=== PATIENT | female | born 1960 | race Caucasian/White ===

== ENCOUNTER 2017-11-13 09:21 | Day surgery (SDC) | payer BC ==
[~2017-11-13] VITALS: Ht 160 cm; Wt 62.8 kg
[~2017-11-13 09:21] MED LIST: ALBU90OI6 INH; ALL DAY ALLERGY10 M1; Advil200 M1 PO; BD ULTRA-FINE PEN ND; CLIN1TS; CYCL10; Cleocin T60 ML; FLUT44OIA; Humalog100 UNIT/1; IBUP600; INSULANPEN; INSULANPEN SC; LEVO-T75 MCG PO; LEVSOD50; NITR100 PO; One Touch Ultr1 EACH; QVAR REDIHALE10.6 G1; ZYRTEC10 M2 PO
== END 2017-11-13 11:55 | disposition home or self-care (01) ==
LOC: ORSCSDS 09:21
PROVIDERS: Internal Medicine Gastroenterology
PROC: 0DBK8ZX Excision of Ascending Colon, Via Natural or Artificial Opening Endoscopic, Diagnostic (ICD-10-PCS; principal; 2017-11-13 10:30)
DX: Z12.11 Encounter for screening for malignant neoplasm of colon (principal); D12.2 Benign neoplasm of ascending colon; Z86.010 Personal history of colon polyps; E11.9 Type 2 diabetes mellitus without complications; J45.909 Unspecified asthma, uncomplicated; E03.9 Hypothyroidism, unspecified; Z79.4 Long term (current) use of insulin; Z79.899 Other long term (current) drug therapy
CPT/HCPCS: 82947; 88305; J7120

== ENCOUNTER 2022-09-19 12:27 | Inpatient (IN) | payer BC ==
[~2022-09-19] VITALS: Ht 160 cm; Wt 67.5 kg
[2022-09-19 12:58] LABS: BASOPHILS ABSOLUTE AUTO 0.23 K/mm3 (0.00-0.23); BASOPHILS PERCENT AUTO 1 % (0-2); EOSINOPHILS ABSOLUTE AUTO 0.04 K/mm3 (0.00-0.68); EOSINOPHILS PERCENT AUTO 0 % (0-6); Hematocrit 47.4 % (33.0-51.0); Hemoglobin 14.3 g/dL (11.5-16.0); IMMATURE GRAN ABSOLUTE AUTO 1.06 K/mm3 (0.00-0.10); IMMATURE GRAN PERCENT AUTO 4 % (0-1); LYMPHOCYTES ABSOLUTE AUTO 3.78 K/mm3 (0.84-5.20); LYMPHOCYTES PERCENT AUTO 13 % (21-46); MONOCYTES PERCENT AUTO 8 % (4-13); Mean Corpuscular HGB 27.5 pg (26.0-34.0); Mean Corpuscular HGB Conc 30.2 g/dL (31.5-36.5); Mean Corpuscular Volume 91 fL (80-100); Mean Platelet Volume 11.5 fL (9.1-12.4); NEUTROPHILS ABSOLUTE AUTO 22.31 K/mm3 (1.96-9.15); NEUTROPHILS PERCENT AUTO 75 % (41-73); Platelet Count 439 K/mm3 (150-400); RDW Coefficient Variation 13.7 % (11.7-14.2); RDW Standard Deviation 46.5 fL (35.1-46.3); White Blood Cell Count 29.82 K/mm3 (4.00-11.30)
[2022-09-19 13:06] LABS: Base Excess Venous -23.6 mmol/L; Bicarbonate Venous 9.1 mmol/L (24.0-30.0); pH Blood Venous 7.02 (7.34-7.37)
[2022-09-19 13:08] LABS: PCO2 Venous 27.9 mmHg (38-42)
[2022-09-19 13:22] LABS: Albumin, Blood 3.9 g/dL (3.4-5.0); Albumin/Globulin Ratio 0.9 (0.8-1.8); Bilirubin, Total 0.5 mg/dL (0.1-1.0); Bun/Creatinine Ratio 27.8 (12.0-20.0); Calcium, Blood 9.9 mg/dL (8.5-10.1); Creatinine, Blood 1.58 mg/dL (0.40-1.00); Globulin, Blood 4.5 g/dL (2.2-4.0); Potassium, Blood 4.8 mmol/L (3.5-5.5); Total Protein, Blood 8.4 g/dL (6.4-8.2)
[2022-09-19 15:18] LABS: Source, Urine Clean Catch
[2022-09-19 15:58] LABS: Glucose, Blood 934 mg/dL (70-99)
[2022-09-19 16:05] LABS: Bilirubin, Urine Neg (Neg); Blood, Urine 3+ (Neg); Glucose Qualitative, Urine 4+ (Neg); Ketones, Urine 4+ (Neg); Leukocyte Esterase, Urine Neg (Neg); Nitrite, Urine Neg (Neg); Protein, Urine Neg (Neg); Specific Gravity, Urine 1.015 (1.003-1.022); Urobilinogen, Urine NORM (Normal)
[2022-09-19 16:26] LABS: U Amphetamine Screen Not Detected; U Barbituate Screen Not Detected; U Benzodiazapine Screen Not Detected; U Buprenorphine Screen Not Detected; U Cannabinoids Screen Not Detected; U Cocaine Screen Not Detected; U Methadone Screen Not Detected; U Methamphetamine Screen Not Detected; U Opiates Screen Not Detected; U Oxycodone Screen Not Detected; U Phencyclidine Screen Not Detected; U Propoxyphene Screen Not Detected
[2022-09-19 16:43] LABS: Appearance, Urine Hazy (Clear); Color, Urine Pale Yellow (P-Yellow)
[2022-09-19 16:44] LABS: Amorphous Light (0-Heavy); Bacteria Mod /hpf; Hyaline Casts 0-2 /lpf (0-2); Mucus Light (0-Heavy); Red Blood Cells, Urine 0-2 /hpf (0-2); Squamous Epithelial Cells Rare /hpf (Few); White Blood Cells, Urine 0-2 /hpf (0-5)
[2022-09-19 17:02] LABS: Calcium, Blood 8.7 mg/dL (8.5-10.1); Creatinine, Blood 1.2 mg/dL (0.40-1.00); Potassium, Blood 3.9 mmol/L (3.5-5.5)
--- NOTE | 2022-09-19 17:34 | NUR ---
LAB: lab called regarding urine culture sample. Tech states initial UA specimen may be used.
[2022-09-19 18:12] LABS: Glucose, Blood 646 mg/dL (70-99)
[2022-09-19 18:47] LABS: Glucose, Blood 570 mg/dL (70-99)
--- NOTE | 2022-09-19 18:55 | NUR ---
SHIFT SUMMARY: Pt arrived to ICU from ED at 1441 with insulin running at 5 units. Insulin currently running at 2 units/hr and IVF at 200 mls/hr. Power glide was started in LUE which pt tolerated well. Bedside swallow was performed successfully and chewable aspirin was given. Rocephin given. Dr Santos aware of troponins trending up. Pt denies any chest pain. Martinez in place and draining to gravity.
[2022-09-19 21:14] LABS: Bun/Creatinine Ratio 33.3 (12.0-20.0); Calcium, Blood 8.7 mg/dL (8.5-10.1); Creatinine, Blood 1.08 mg/dL (0.40-1.00); Potassium, Blood 4.2 mmol/L (3.5-5.5)
[2022-09-19 23:05] LABS: International Normalized Ratio 1.08; Prothrombin Time Results 11.3 Sec (9.7-11.5)
[2022-09-20 00:27] LABS: Source, Urine Straight Cath
[2022-09-20 00:30] LABS: Bilirubin, Urine Neg (Neg); Blood, Urine 4+ (Neg); Glucose Qualitative, Urine 4+ (Neg); Ketones, Urine 4+ (Neg); Leukocyte Esterase, Urine Neg (Neg); Nitrite, Urine Neg (Neg); Protein, Urine 1+ (Neg); Urobilinogen, Urine NORM (Normal)
[2022-09-20 00:47] LABS: Appearance, Urine Clear (Clear); Calcium, Blood 8.6 mg/dL (8.5-10.1); Color, Urine Yellow (P-Yellow); Creatinine, Blood 0.9 mg/dL (0.40-1.00); Potassium, Blood 4.1 mmol/L (3.5-5.5)
[2022-09-20 00:51] LABS: Bacteria Rare /hpf; Squamous Epithelial Cells Mod /hpf (Few); White Blood Cells, Urine 0-2 /hpf (0-5)
[2022-09-20 00:57] LABS: Hyaline Casts 0-2 /lpf (0-2); Red Blood Cells, Urine 0-2 /hpf (0-2)
[2022-09-20 04:33] LABS: BASOPHILS ABSOLUTE AUTO 0.02 K/mm3 (0.00-0.23); BASOPHILS PERCENT AUTO 0 % (0-2); EOSINOPHILS PERCENT AUTO 0 % (0-6); Hematocrit 31.4 % (33.0-51.0); Hemoglobin 10.6 g/dL (11.5-16.0); IMMATURE GRAN ABSOLUTE AUTO 0.12 K/mm3 (0.00-0.10); IMMATURE GRAN PERCENT AUTO 1 % (0-1); LYMPHOCYTES ABSOLUTE AUTO 0.91 K/mm3 (0.84-5.20); LYMPHOCYTES PERCENT AUTO 6 % (21-46); MONOCYTES ABSOLUTE AUTO 1.56 K/mm3 (0.16-1.47); MONOCYTES PERCENT AUTO 10 % (4-13); Mean Corpuscular HGB 27.4 pg (26.0-34.0); Mean Corpuscular HGB Conc 33.8 g/dL (31.5-36.5); Mean Platelet Volume 10.8 fL (9.1-12.4); NEUTROPHILS ABSOLUTE AUTO 13.08 K/mm3 (1.96-9.15); NEUTROPHILS PERCENT AUTO 83 % (41-73); Platelet Count 285 K/mm3 (150-400); RDW Coefficient Variation 13.4 % (11.7-14.2); RDW Standard Deviation 39.7 fL (35.1-46.3); Red Blood Cell Count 3.87 M/mm3 (3.80-5.20); White Blood Cell Count 15.69 K/mm3 (4.00-11.30)
[2022-09-20 05:43] LABS: Mean Corpuscular Volume 81 fL (80-100)
[2022-09-20 06:44] LABS: Albumin, Blood 2.7 g/dL (3.4-5.0); Albumin/Globulin Ratio 0.9 (0.8-1.8); Bilirubin, Total 0.5 mg/dL (0.1-1.0); Bun/Creatinine Ratio 43.5 (12.0-20.0); Calcium, Blood 8.3 mg/dL (8.5-10.1); Creatinine, Blood 0.83 mg/dL (0.40-1.00); Globulin, Blood 3.1 g/dL (2.2-4.0); Potassium, Blood 3.7 mmol/L (3.5-5.5); Total Protein, Blood 5.8 g/dL (6.4-8.2)
[2022-09-20 08:28] LABS: Anion Gap 9 mmol/L (6-16); Blood Urea Nitrogen 35 mg/dL (8-24); Bun/Creatinine Ratio 44.7 (12.0-20.0); CHOL/HDL RATIO 2.8; CO2, Blood 19 mmol/L (21-32); Calcium, Blood 8.2 mg/dL (8.5-10.1); Chloride, Blood 117 mmol/L (98-108); Cholesterol 142 mg/dL (50-200); Creatinine, Blood 0.78 mg/dL (0.40-1.00); Glomerular Filtration Rate 85 (60-); Glucose, Blood 358 mg/dL (70-99); HDL Cholesterol 51 mg/dL (>39); LDL/HDL RATIO 1.5; Low Density Lipoprotein Chol 75 mg/dL (0-110); Potassium, Blood 3.2 mmol/L (3.5-5.5); Sodium, Blood 145 mmol/L (136-145); Triglycerides 81 mg/dL (30-160); Very Low Density Lipoprot Chol 16 mg/dL (6-32)
--- NOTE | 2022-09-20 11:54 | NUR ---
Received TC from Dr. Shearer that angio is going to be delayed a little and to leave the heparin running for now at the current rate. Info relayed to pt and her as well.
--- NOTE | 2022-09-20 13:04 | NUR ---
REASSESSMENT PT HAS BEEN RESTING IN BED THROUGHOUT THE MORNING. SHE IS ALERT, ORIENTED TO SELF, DATE AND LOCATION, BUT RESPONSES ARE DELAYED AND SHE GETS CONFUSED EASILY. 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 REDDY. SR, BP STABLE, LUNGS CLEAR, RA. ROLLOFF TRUCK DRIVER COUGH. PT GOT UP TO [facility] FOR BM, HAD SOME WEAKNESS STANDING BACK UP FROM [facility] AND NEEDED ASSISTANCE GETTING BACK TO BED. PT'S HAS BEEN AT THE BEDSIDE AND BEEN UPDATED.
--- NOTE | 2022-09-20 13:50 | NUR ---
PT BACK FROM [employer]. SLEEPING. TR BAND ON R WRIST. C/D/I, SOFT, WITHOUT HEMATOMA.
--- NOTE | 2022-09-20 17:12 | NUR ---
SHIFT SUMMARY PT WAS TRANSITIONED OFF THE INSULIN GTT THIS EVENING AFTER SHE WENT TO [employer]ILITY [employer]. TR BAND ON R RADIAL. SITE IS C/D/I, SOFT WITH NO HEMATOMA. ALL AIR IS REMOVED FROM THE BAND AND WILL REMOVE BAND AND PLACE DRESSING IN 1 HOUR. PT REMAINS ALERT, ORIENTED TO PERSON, PLACE AND TIME, BUT STILL HAS DELAYED RESPONSES. LUNGS ARE CLEAR, RA. SR, BP STABLE. CATHETER DRAINING YELLOW URINE. PT HAD BM TODAY. PT'S FAMILY IS AT THE BEDSIDE AND HAS BEEN UPDATED THROUGHOUT THE AFTERNOON BY DR. HENSON. PLAN IS FOR PT TO GO TO [facility] FOR CARDIAC SURGERY CONSULT. SPOKE WITH [facility] AND CLAIMS SUPERVISOR AND RECEIVED BED ASSIGNMENT.
--- NOTE | 2022-09-20 18:16 | NUR ---
TRANSFER PT DISCHARGED VIA GURNEY AND AMBULANCE TO [facility]. REPORT CALLED TO RN ON CCU AT [facility]. PT ALERT AND ORIENTED TO PERSON AND PLACE AT TIME OF TRANSFER. PT'S AND JULIO CESAR AT THE BEDSIDE AND AWARE OF ROOM NUMBER AT . REPORT ALLSO GIVEN TO EMT. ALL BELONGINGS SENT WITH PT OR FAMILY.
== END 2022-09-20 18:23 | disposition short-term general hospital (02) | DRG 280 ==
LOC: ER 12:27 → ICUW 13:57
PROVIDERS: Emergency Medicine; Internal Medicine; Nurse Practitioner Acute Care; ADMIT Internal Medicine
PROC: 4A133R1 Monitoring of Arterial Saturation, Peripheral, Percutaneous Approach (ICD-10-PCS; 2022-09-19)
PROC: 0T9B70Z Drainage of Bladder with Drainage Device, Via Natural or Artificial Opening (ICD-10-PCS; 2022-09-19)
PROC: 4A023N7 Measurement of Cardiac Sampling and Pressure, Left Heart, Percutaneous Approach (ICD-10-PCS; principal; 2022-09-20)
PROC: B211YZZ Fluoroscopy of Multiple Coronary Arteries using Other Contrast (ICD-10-PCS; 2022-09-20)
PROC: B215YZZ Fluoroscopy of Left Heart using Other Contrast (ICD-10-PCS; 2022-09-20)
PROC: B240ZZ3 Ultrasonography of Single Coronary Artery, Intravascular (ICD-10-PCS; 2022-09-20)
DX: I21.4 Non-ST elevation (NSTEMI) myocardial infarction (principal); E10.10 Type 1 diabetes mellitus with ketoacidosis without coma; R65.11 Systemic inflammatory response syndrome (SIRS) of non-infectious origin with acute organ dysfunction; G92.8 Other toxic encephalopathy; N17.9 Acute kidney failure, unspecified; R30.0 Dysuria; E03.9 Hypothyroidism, unspecified; E10.65 Type 1 diabetes mellitus with hyperglycemia; I25.10 Atherosclerotic heart disease of native coronary artery without angina pectoris; E86.0 Dehydration; I10 Essential (primary) hypertension; E78.5 Hyperlipidemia, unspecified; I24.9 Acute ischemic heart disease, unspecified; J45.909 Unspecified asthma, uncomplicated; Z79.899 Other long term (current) drug therapy; Z88.1 Allergy status to other antibiotic agents; Z98.890 Other specified postprocedural states; Z79.4 Long term (current) use of insulin; Z88.5 Allergy status to narcotic agent; Z88.0 Allergy status to penicillin; Z88.8 Allergy status to other drugs, medicaments and biological substances; Z79.51 Long term (current) use of inhaled steroids; Z79.82 Long term (current) use of aspirin
CPT/HCPCS: 36415; 51702; 71045; 76937; 80048; 80053; 80061; 81001; 82803; 82947; 83690; 83735; 84484; 85025; 85610; 85730; 87086; 93005; 93010; 93306; 93458; 94640; 94664; 94762; 96360; 99152; 99153; 99285-25; A9270; C1751; C1769; C1887; C1894; J0696; J1644; J1650; J1815; J2250; J3010; J3480; J7030; J7042; J7050; J7120; Q9967